=== PATIENT | male | born 1995 | race Caucasian/White ===

== ENCOUNTER → 2020-04-25 07:10 | Outpatient (CLI) | payer BC, SELFPAY ==
--- NOTE | ~2020-04-25 | US_ITS ---
EXAMINATION: US right upper quadrant DATE: 04/25/2020 08:11 INDICATION: Abnormal liver function tests. TECHNIQUE: Multiple grayscale and Doppler ultrasound images of the abdomen were obtained. COMPARISON: None FINDINGS: Abdominal aorta is normal in caliber. The visualized portions of the head and body of the p ancreas are normal. There is diffuse hepatic steatosis. There is normal flow in main portal vein. The gallbladder is normal in size and contains sludge. No gallstones or gallbladder wall thickening. The re is no sonographic Yuen sign. The common duct is normal and measures 5 mm. IMPRESSION: 1. Diffuse hepatic steatosis. Reviewed, dictated and finalized at location A. NG AND REIMBURSEMENT SPECIALIST
--- NOTE | ~2020-04-25 | XR_ITS ---
EXAMINATION: [id number] EXAM DATE: 04/25/2020 07:39 INDICATION: Right anterior rib pain below the nipple line with movement. TECHNIQUE: Frontal projection of the upper right ribs, frontal projection of the lower right ribs, ob lique projection of the right ribs, frontal chest x-ray(s) for interpretation. There is no prior mario dy for comparison. FINDINGS: There are no displaced acute right rib fractures identified. There are no osteoblastic or osteolytic lesions identified. There is no soft tissue abnormality seen. No confluent consolidation, pneumothorax or pleural effusion suspected. Cardiomediastinal silhouette is normal. IMPRESSION: Unremarkable right rib, chest x-ray exams. Reviewed, dictated and finalized at location A. PROCESSING MACHINE OPERATOR
== END ==
PROVIDERS: PCP Internal Medicine; Visit Provider Internal Medicine
DX: R74.01 Elevation of levels of liver transaminase levels (principal); K76.0 Fatty (change of) liver, not elsewhere classified
CPT/HCPCS: 71101; 76705

== ENCOUNTER 2023-05-20 01:04 | Day surgery (SDC) | payer OTHER, SELFPAY ==
[2023-05-12 11:33] VITALS: BMI 33.7
--- NOTE | 2023-05-12 11:37 | PC.NURSE ---
Report to the Outpatient Waiting Room, entrance under the green pavilion located off [facility], at time 0815 on date 05/20/23. Planned Procedure Time: 1015. Time changes happen often and if your time is changed the preop area will call you the afternoon before. - You and your visitor will be asked to self-screen and do not enter if you have any COVID symptoms. - A mask is optional within the hospital at this time. Patients may have clear liquids (water, carbonated beverages, clear teas, apple juice) until 3 hours prior to surgery with a maximum of 20 ounces. - No food from midnight until time of surgery Take the following medications with a SIP of water the morning of surgery: N/A DO NOT STOP ANY OF YOUR OTHER PRESCRIPTION MEDICATIONS PRIOR TO SURGERY ?EXCEPT THE FOLLOWING Medications to discontinue per physician: N/A Date to take last dose: N/A Please no make-up, nail kiswahili, hairspray, perfume, deodorant, or body powder the day of surgery. No jewelry (including any body piercings) or valuables the day of surgery, leave them at home. Please take a shower or bath the night before, or the morning of, surgery with an antibacterial soap. Wear comfortable, loose fitting clothing. - Jewelry must be removed prior to entering the operating room. Rings and piercings that are not removed may be cut off. - The hospital will not accept responsibility for valuables. - Please leave all valuables, including medications, at home the day of surgery. If you are going home after surgery, a licensed interstate bus driver must drive you home. - NO public transportation without another adult if you receive anesthesia. - We recommend that an adult stay with you for 24 hours following discharge. - We also recommend that you do not drive, make important decision, drink alcoholic beverages, or take any drugs that were not prescribed by your health care provider for at least 24 hours after your discharge time. Follow any additional instructions given to you from your surgeon. If you or anyone in your household have experienced Covid symptoms in the past week, please notify your surgeon or the nurse liaison at the phone number below for possible testing. Telephone instructions given to PT Supriya RAYGOZA and asked if any additional questions and then verbalized understanding. Patient advised to call surgeon office or pre surgery nurse liaison [phone] if any additional questions.
--- NOTE | 2023-05-19 13:05 | PM.IMHP ---
H&P: HPI History of Present Illness Date/Time: 05/19/23 13:05 Chief Complaint: snoring sleep disordered breathing tonsillar hypertrophy adenoid hypertrophy recurrent tonsillitis Narrative: planned procedure Review of Systems Review of Systems: All systems reviewed & are unremarkable except as noted in HPI and below [facility] Social History Social History Smoking packs per day: 1 Smoking cigarettes per day: 20.0 Years smoked: 10 Smoking pack-years: 10.00 Smoking status: Current every day smoker Tobacco type: cigarettes Alcohol intake: never Substance use: never Substance use type: does not use Lack of Transportation: No Lack of Food: Never True Current Housing: I Have Housing Concerned About Future Housing: No Difficulty Paying Gas/Electric Bills: No Difficulty Paying for Meds: No Currently Unemployed: No Education: High School Diploma/GED Difficulty w/ Childcare or Family Care: No Living arrangements: with family Spiritual care concerns: No Meds Home Medications and Allergies Home Medications Medication Instructions Recorded Confirmed Type No Home Medications 05/12/23 05/12/23 History Allergies Allergy/AdvReac Type Severity Reaction Status Date / Time No Known Allergies Allergy Verified 05/12/23 11:33 Exam Narrative: tonsil hypertrophy adenoid hypertrophy Assessment and Plan Assessment and plan (1) Adenoid hypertrophy: Code(s): J35.2 - Hypertrophy of adenoids Status: Acute Assessment and Plan: ?plan or tonsillectomy adenoidectomy.? Risks were discussed including bleeding infection damage to surrounding structures damage to any structure of the clavicles by myself.? Damage to any structure injection and maintenance of anesthesia including vocal cord paralysis.? Need for time off work time off school.? Hearing risk of narcotic use.? Postoperative bleeding 5-7% in an adult with recurrent infections. (2) Tonsillar hypertrophy: Code(s): J35.1 - Hypertrophy of tonsils Status: Acute (3) Snoring: Code(s): R06.83 - Snoring Status: Acute (4) Recurrent tonsillitis: Code(s): J03.91 - Acute recurrent tonsillitis, unspecified Status: Acute
[2023-05-20] VITALS (7 sets, daily range): BP systolic 102–138; BP diastolic 48–88; PULSE 55–95; RESP 14–18; TEMP 36.4–36.6; O2SAT 92–100; BMI 34.0
--- NOTE | 2023-05-20 07:17 | WPDHPUPDATE1 ---
History and Physical Update Update Date/Time: 05/20/23 07:17 History and Physical has been reviewed, including an updated exam of the patient. There are NO changes in the patient's condition. Risks, benefits, and alternatives have been discussed and questions answered. Patient agrees to proceed with procedure.
[2023-05-20] MEDS: LACTATED RINGERS 1,000 ML 30 ML IV CONT ×2 (08:15→10:17)
--- NOTE | 2023-05-20 08:18 | WPDANESEPPF ---
Anes - Initial Pre Proc Eval Procedure: Operation Date: 05/20/23 09:45 Proposed Procedures p Tonsillectomy And Adenoidectomy - Chencho Zayas MD Date/Time: 05/20/23 08:18 Surgeon: Chencho Zayas MD Pre Op Diagnosis: adenoid hypertrophy,recurrent tonsilitis Patient Data Age: 27 Gender: M Height: 1.82 m Weight: 111.15 kg Allergies Allergy/AdvReac Type Severity Reaction Status Date / Time No Known Allergies Allergy Verified 05/20/23 07:57 Home Medications Medication Instructions Recorded Confirmed Type No Home Medications 05/12/23 05/12/23 History Patient hx anesthesia problems: none Family hx anesthesia problems: none Results Review: All pre-operative results and documents have been reviewed as part of the pre-operative evaluation. [facility] Social History Social History Smoking packs per day: 1 Smoking cigarettes per day: 20.0 Years smoked: 10 Smoking pack-years: 10.00 Smoking status: Current every day smoker Tobacco type: cigarettes Alcohol intake: never Substance use: never Substance use type: does not use Lack of Transportation: No Lack of Food: Never True Current Housing: I Have Housing Concerned About Future Housing: No Difficulty Paying Gas/Electric Bills: No Difficulty Paying for Meds: No Currently Unemployed: No Education: High School Diploma/GED Difficulty w/ Childcare or Family Care: No Living arrangements: with family Spiritual care concerns: No Anes - Eval Final PreProcedure Day of Procedure 05/20/23 08:18 Patient weight: obese Heart: regular rate and rhythm Lungs: clear to auscultation Airway: Mallampati scale class II Neurological: alert and oriented Last oral intake: >/= 8 hours ASA classification: II Emergent: no Anesthetic plan: proceed Anesthesia type and monitoring: general ETT and standard monitoring Results Review: All pre-operative results and documents have been reviewed as part of the pre-operative evaluation. Informed Consent: The patient's anesthetic plan and its attendant risks and benefits were discussed with the patient/family/POA. Questions were solicited and answers provided to the satisfaction of the patient/family/POA.
[2023-05-20] MEDS: ACETAMINOPHEN 500 MG TABLET 1000 MG PO (08:24)
--- NOTE | 2023-05-20 10:30 | P.OP_ITS ---
Procedure Note - Detailed Date of Procedure 05/20/23 Pre-op Diagnosis adenoid hypertrophy,recurrent tonsilitis Post-op Diagnosis Same Procedure Performed Tonsillectomy Surgeon Chencho Zayas MD Anesthesia General Indications recurrent tonsillitis Findings really scarred in tonsils minimal bleeding from the left side not from the right. Description of Procedure Patient identified consent verified preop. Patient with operating. Time-out performed. General anesthesia induced endotracheal tube secured. Patient prepped draped position procedure confirmed 2nd time-out performed. McIvor mouth gag inserted to reveal very scarred in erythematous tonsils with stones. They were removed bilaterally extracapsular plane using Bovie electrocautery setting of 8. Any bleeding was controlled with bipolar electrocautery setting of 8 and Bovie suction electrocautery at setting of 10. Again this was bilateral procedure. About 3 cc bleeding from the left side inferiorly. In- between tonsils McIvor mouth gag lowered reopened allow blood flow to return to the tongue. After tonsils done McIvor mouth gag lowered for 30 seconds and removed and I reopened reveal no further bleeding. Adenoids viewed non-existen t. Care the patient given back to Anesthesiology McIvor mouth gag removed. I performed all dictated portions of procedure. Blood loss 3 cc. No complications. Patient taken to PACU. Estimated Blood Loss 3 Drains No Packing No Pathology Yes Complications No immediate complications Condition Stable Disposition PACU [facility] Billing Surgery - Charge Forward: Surgery Billing
[2023-05-20] MEDS: fentaNYL CITRATE INJ (*CRX) 100 MCG/2 ML VIAL 25 MCG IV PUSH (10:36)
== END 2023-05-20 11:40 | disposition home or self-care (01) ==
PROVIDERS: PCP Internal Medicine; Visit Provider Otolaryngology
PROC: (CPT 42826; principal; 2023-05-20 09:45)
DX: J35.01 Chronic tonsillitis (principal); F17.210 Nicotine dependence, cigarettes, uncomplicated; E66.9 Obesity, unspecified; Z68.34 Body mass index [BMI] 34.0-34.9, adult
CPT/HCPCS: 42826; 88302; A9270; J0330; J1100; J1170; J2250; J2405; J2704; J3010; J7120